=== PATIENT | female | born 1965 | race Caucasian/White ===

== ENCOUNTER 2023-05-01 16:43 | Emergency (ER) | payer BC ==
[~2023-05-01] VITALS: Ht 160 cm; Wt 74.8 kg
[2023-05-01 16:45] VITALS: BP 121/80; PULSE 111; RESP 22; TEMP 98.1; O2SAT 98
[2023-05-01] MEDS ORDERED: LORazepam 1 MG TAB PO ONE (17:10)
[2023-05-01] MEDS ORDERED: ATA25 PO (17:18)
== END 2023-05-01 17:35 | disposition home or self-care (01) ==
LOC: MED 16:43
DX: F41.9 Anxiety disorder, unspecified (principal); E11.9 Type 2 diabetes mellitus without complications; I10 Essential (primary) hypertension; Z88.1 Allergy status to other antibiotic agents; Z79.4 Long term (current) use of insulin; Z79.899 Other long term (current) drug therapy
CPT/HCPCS: 99283